=== PATIENT | male | born 1985 | race Caucasian/White ===

== ENCOUNTER 2019-05-05 19:41 | Emergency (ER) | payer OTHER ==
[~2019-05-05] VITALS: Ht 182.9 cm; Wt 167.8 kg
[2019-05-05 19:45] VITALS: BP 134/77
--- NOTE | 2019-05-05 19:55 | NUR ---
Brittany sharma in ED - 05/05/19 at 2003 by [facility] PT WHEELCHAIRED TO BED #3
--- NOTE | 2019-05-05 19:55 | NUR ---
PT WHEELCHAIRED TO BED #2
--- NOTE | 2019-05-05 20:02 | NUR ---
33 Y/O M PRESENTS TO ED S/P FALL X1 HOUR BRICKLAYER TENDER. PT REPORTS SLIPPING AND FALLING DOWN THAT STAIRS. PT DENIES LOC AT TIME OF FALL. C/O RT KNEE PAIN, 6/10 ACHING PAIN.ABRASION NOTED TO RT KNEE. BLEEDING CONTROLLED. BEDRAIL X1 UP. FAMILY AT BEDSIDE. WILL CONTINUE TO MONITOR.
[2019-05-05] MEDS ORDERED: BACITRACIN OINT 500 UNITS/GM PKT TP ONE ×3 (20:15→20:35)
[2019-05-05] MEDS ORDERED: KETOROLAC 60 MG/2 ML VIAL IM ONE ×3 (20:15→20:35)
--- NOTE | 2019-05-05 20:47 | NUR ---
CRUTCHES DISPENSED. TAUGHT PROPER USE, PATIENT PERFORMED RETURN DEMONSTRATION.
[2019-05-05 20:52] VITALS: BP 134/77
--- NOTE | 2019-05-05 20:52 | NUR ---
Patient discharged with v/s stable. Written and verbal after care instructions given and explained. Pt encouraged to rest ankle, apply ice for 15-20min, and elevate extremity when at rest. Pt taught use of crutches with return demonstration. Patient alert, oriented and verbalized understanding of instructions. Pt wheelchair assisted to car. All questions addressed prior to discharge. ID band removed. Patient advised to follow up with PMD. Rx of IBUPROFEN 600MG WAS given. Patient educated on indication of medication including possible reaction and side effects. Opportunity to ask questions provided and answered.
== END 2019-05-05 20:52 | disposition home or self-care (01) ==
LOC: MED 19:41
DX: S93.401A Sprain of unspecified ligament of right ankle, initial encounter (principal); W10.9XXA Fall (on) (from) unspecified stairs and steps, initial encounter; Y93.89 Activity, other specified; Y92.89 Other specified places as the place of occurrence of the external cause; Y99.8 Other external cause status
CPT/HCPCS: 73610; 96372; 99283; J1885; Q0092